=== PATIENT | female | born 1950 | race Caucasian/White ===

== ENCOUNTER 2016-07-22 20:58 | Emergency (ER) | payer MEDICARE, MEDICAID ==
[~2016-07-22] VITALS: Ht 160 cm; Wt 88.5 kg
--- NOTE | 2016-07-22 21:32 | NUR ---
PT AMBULATORY TO ER BED 10. C/O LT WRIST PAIN S/P LIFTING HEAVY OBJECT. AT THE ROOM PT, STATES ALSO HAVING LUE TINGGLING SENSATION AND CONCERNED ABOUT HER HEART. DENIES HEART ISSUES. GOWNED AND PLACED ON MONITOR. AWAITING MD KEITH.
--- NOTE | 2016-07-22 22:05 | NUR ---
PIA TUTTLE AT BEDSIDE FOR EVAL.
--- NOTE | 2016-07-22 22:20 | NUR ---
SOLE TIER AT BEDSIDE FOR BLOOD DRAW.
[2016-07-22 22:37] LABS: BASOPHILS % (AUTO) 0.6 % (0.0-2.0); EOSINOPHILS # (AUTO) 0.5 /CMM (0.0-0.7); EOSINOPHILS % (AUTO) 6.1 % (0.0-6.0); HEMATOCRIT 41 % (33-45); HEMOGLOBIN 13.5 g/dL (11.5-14.8); LYMPHOCYTES # (AUTO) 1.9 /CMM (0.8-4.8); LYMPHOCYTES % (AUTO) 23.7 % (20.0-44.0); MEAN CORPUSCULAR HEMOGLOBIN 29 PG (26.0-33.0); MEAN CORPUSCULAR HGB CONC 33 g/dl (31.0-36.0); MEAN CORPUSCULAR VOLUME 87 fL (82-100); MONOCYTES # (AUTO) 0.4 /CMM (0.1-1.30); MONOCYTES % (AUTO) 5.7 % (2.0-12.0); NEUTROPHILS # (AUTO) 5.1 /CMM (1.8-8.9); NEUTROPHILS % (AUTO) 63.9 % (43.0-81.0); PLATELET COUNT (AUTO) 209 /CMM (150-450); RDW COEFFICIENT OF VARIATION 13.2 (11.5-15.0); RED BLOOD CELL COUNT(AUTO) 4.64 MIL/uL (4.0-5.2); WHITE BLOOD COUNT (AUTO) 7.9 K/uL (4.3-11.0)
[2016-07-22 22:38] LABS: CALCIUM, SERUM 9.5 mg/dL (8.5-10.1); CARBON DIOXIDE 30 mmol/L (21-32); CHLORIDE 108 mmol/L (98-107); CREATININE 0.9 mg/dL (0.6-1.3); GFR 62 mL/min (>60); GLUCOSE 86 mg/dL (74-106); POTASSIUM 3.8 mmol/L (3.5-5.1); SODIUM SERUM 144 mmol/L (136-145); UREA NITROGEN, BLOOD 17 mg/dL (7-18)
[2016-07-22 22:44] LABS: ALANINE AMINOTRANSFERASE 24 U/L (12-78); ALBUMIN 3.8 g/dL (3.4-5.0); ALKALINE PHOSPHATASE 106 U/L (46-116); ASPARTATE AMINOTRANSFERASE 16 U/L (15-37); BILIRUBIN,TOTAL 0.3 mg/dL (0.2-1.0); TOTAL PROTEIN, SERUM 7.3 g/dL (6.4-8.2)
[2016-07-22 22:46] LABS: TROPONIN I < 0.017 ng/mL (0.00-0.056)
--- NOTE | 2016-07-22 23:00 | NUR ---
Patient discharged to home in stable condition. Written and verbal after care instructions given. Patient verbalizes understanding of instruction.
[2016-07-22 23:01] VITALS: BP 138/74
== END 2016-07-22 23:02 | disposition home or self-care (01) ==
LOC: ER 21:01
DX: M25.532 Pain in left wrist (principal); I10 Essential (primary) hypertension; Z91.02 Food additives allergy status; X50.0XXA Overexertion from strenuous movement or load, initial encounter; Y93.89 Activity, other specified; Y92.89 Other specified places as the place of occurrence of the external cause; Y99.8 Other external cause status
CPT/HCPCS: 36415; 80053; 84484; 85025; 93005; 99285; A4606; Z7610